=== PATIENT | male | born 1950 | race Caucasian/White ===

== ENCOUNTER → 2018-11-12 | Outpatient (CLI) | payer MEDICARE, OTHER ==
[~2018-11-12] MED LIST: ATORVASTATIN CA40 M1 PO; BASAG SOL SC; BICALUTAMIDE50 MG PO; CHLORTHALIDONE25 MG PO; GLIPIZIDE XL2.5 M1 PO; GLUCOPHAGE1000 MG PO; LISINOPRIL40 MG PO; MIRAPEX0.5 MG PO; NORVASC5 MG PO; SINEMET 25-1001 EACH PO; ZOFRAN4 MG PO
== END | disposition home or self-care (01) ==
LOC: CT 11-05 10:00
DX: M48.062 Spinal stenosis, lumbar region with neurogenic claudication (principal); G62.9 Polyneuropathy, unspecified; R53.1 Weakness; M47.816 Spondylosis without myelopathy or radiculopathy, lumbar region

== ENCOUNTER 2019-01-12 11:15 | Inpatient (IN) | payer MEDICARE, OTHER ==
[~2019-01-12] VITALS: Ht 170.1 cm; Wt 96.2 kg
[2019-01-12] VITALS (7 sets, daily range): BP systolic 126–162; BP diastolic 47–68
[2019-01-12 11:38] LABS: BASO # 0.1 10*3/uL (0.0-0.1); BASO % 0.4 % (0.0-1.0); EOS % 0.3 % (1.0-4.0); HEMATOCRIT 33.8 % (42.0-52.0); HEMOGLOBIN 11.3 g/dl (14.0-18.0); LYMPH # 1.1 10*3/uL (1.3-4.4); LYMPH % 7.9 % (27.0-41.0); MEAN CELL VOLUME 87.1 fl (80.0-94.0); MEAN CORPUSCULAR HGB 29.1 pg (27.0-31.0); MEAN CORPUSCULAR HGB CONC 33.4 g/dl (33.0-37.0); MEAN PLATELET VOLUME 9.2 fl (9.6-12.3); MONO # 0.8 10*3/uL (0.1-1.0); MONO % 5.5 % (3.0-9.0); NEUT # 11.9 10*3/uL (2.3-7.9); NEUT % 85.7 % (47.0-73.0); PLATELET COUNT AUTOMATED 278 10*3/uL (130-400); RED BLOOD COUNT 3.88 10*6/uL (4.50-5.90); WHITE BLOOD COUNT 13.9 10*3/uL (4.8-10.8)
[2019-01-12 11:49] LABS: ACT PARTIAL THROMBO TIME 22.2 SECONDS (20.0-32.1); INTERNATIONAL NORM RATIO 0.9 (2.0-3.5)
[2019-01-12 11:55] LABS: BUN 31 mg/dl (7-24); CHLORIDE 101 mmol/L (98-107); POTASSIUM 4.7 mmol/L (3.5-5.1); SGOT/AST 14 IU/L (3-35); SGPT/ALT 25 U/L (12-78); SODIUM 133 mmol/L (136-145); TOTAL PROTEIN 7.9 gm/dL (6.4-8.2)
[2019-01-12 11:56] LABS: ALKALINE PHOSPHATASE 86 U/L (45-117)
[2019-01-12 12:00] LABS: TROPONIN I < 0.015 ng/ml (<0.045)
--- NOTE | 2019-01-12 14:40 | NUR ---
A 68, admitted to , under the services of JAMIE Amador DO with a diagnosis of NEAR SYNCOPE, UNABLE TO AMBULATE. Chief complaint is SYNCOPE, WEAKNESS,NAUSEA,VOMITING. Patient arrived via bed from ER. Monitor applied. Initial assessment completed. Vital signs taken and recorded. JAMIE AMADOR DO notified of admission to the unit. Orders received. See assessment for past medical history, medications and allergies. Patient and/or family oriented to unit. [facility] visitation policy reviewed. Clothing/patient valuable form completed. VEGA CISSE
[2019-01-12] MEDS ORDERED: BASAG SOL SC (15:48)
[2019-01-12] MEDS ORDERED: LISINOPRIL40 MG PO (15:50)
[2019-01-12] MEDS ORDERED: CHLORTHALIDONE25 MG PO (15:51)
[2019-01-12] MEDS ORDERED: GLUCOPHAGE1000 MG PO (15:51)
[2019-01-12] MEDS ORDERED: ATORVASTATIN CA40 M1 PO (15:51)
[2019-01-12] MEDS ORDERED: GLIPIZIDE XL2.5 M1 PO (15:52)
[2019-01-12] MEDS ORDERED: NORVASC5 MG PO (15:53)
[2019-01-12] MEDS ORDERED: BICALUTAMIDE50 MG PO (15:54)
[2019-01-12] MEDS ORDERED: SINEMET 25-1001 EACH PO (15:54)
[2019-01-12] MEDS ORDERED: MIRAPEX0.5 MG PO (15:56)
--- NOTE | 2019-01-12 16:00 | NUR ---
MED REC UPDATED PER PAPERS PROVIDED BY PATIENT.
--- NOTE | 2019-01-12 20:01 | NUR ---
24 HR chart check completed.
[2019-01-13] VITALS: BP 114/67
[2019-01-13 05:28] LABS: BASO # 0.1 10*3/uL (0.0-0.1); BASO % 0.5 % (0.0-1.0); EOS # 0.3 10*3/uL (0.0-0.4); EOS % 2.6 % (1.0-4.0); HEMATOCRIT 31.2 % (42.0-52.0); HEMOGLOBIN 10.5 g/dl (14.0-18.0); LYMPH # 1.5 10*3/uL (1.3-4.4); LYMPH % 12.9 % (27.0-41.0); MEAN CELL VOLUME 87.9 fl (80.0-94.0); MEAN CORPUSCULAR HGB 29.6 pg (27.0-31.0); MEAN CORPUSCULAR HGB CONC 33.7 g/dl (33.0-37.0); MONO # 1.1 10*3/uL (0.1-1.0); MONO % 9.4 % (3.0-9.0); NEUT # 8.7 10*3/uL (2.3-7.9); NEUT % 74.3 % (47.0-73.0); PLATELET COUNT AUTOMATED 235 10*3/uL (130-400); RED BLOOD COUNT 3.55 10*6/uL (4.50-5.90); WHITE BLOOD COUNT 11.7 10*3/uL (4.8-10.8)
[2019-01-13 05:44] LABS: ALBUMIN 3.6 gm/dl (3.1-4.5); ALKALINE PHOSPHATASE 79 U/L (45-117); BUN 27 mg/dl (7-24); CHLORIDE 102 mmol/L (98-107); CHOLESTEROL 143 mg/dL (<200); CREATININE 1.18 mg/dL (0.70-1.30); FREE T4 0.95 ng/dl (0.76-1.46); HDL CHOLESTEROL 44 mg/dl (40-60); LDL CHOLESTEROL 68 mg/dL (9-159); PHOSPHOROUS 3.4 mg/dL (2.5-4.9); POTASSIUM 4.3 mmol/L (3.5-5.1); SGOT/AST 13 IU/L (3-35); SGPT/ALT 10 U/L (12-78); SODIUM 135 mmol/L (136-145); TOTAL PROTEIN 7.2 gm/dL (6.4-8.2); TRIGLYCERIDES 157 mg/dl (<150); VLDL CHOLESTEROL 31 mg/dL (6-40)
[2019-01-13 05:51] LABS: THYROID STIM HORMONE (HS) 0.545 uIU/ml (0.358-4.75)
[2019-01-13 05:56] LABS: ACT PARTIAL THROMBO TIME 23.2 SECONDS (20.0-32.1)
[2019-01-13 08:00] VITALS: BP 120/72
[2019-01-13 08:02] LABS: VITAMIN D, 25-HYDROXY 21.8 ng/mL (30-100)
[2019-01-13 12:00] VITALS: BP 140/50
--- NOTE | 2019-01-13 14:29 | NUR ---
PT TRANSFERRED TO THE 5TH FLOOR AT THIS TIME. REPORT GIVEN TO ALCIRA SWIFT RN.
[2019-01-13 16:00] VITALS: BP 127/61
--- NOTE | 2019-01-13 16:06 | NUR ---
ADMINISTERED TUMS 1000MG X 1 ORDERED FOR C/O INDIGESTION, ALSO MILK OF MAGNESIA FOR CONSTIPATION.
--- NOTE | 2019-01-13 17:18 | NUR ---
TUMS WAS VERY MINIMALLY EFFECTIVE, PER PATIENT. HE IS REQUESTING ADDITIONAL MEDICATION FOR INDIGESTION.
[2019-01-13 20:00] VITALS: BP 115/62
[2019-01-14] VITALS: BP 148/70
--- NOTE | 2019-01-14 02:58 | NUR ---
PATIENT RESTING IN BED WITH EYES CLOSED. AWAKENS TO VERBAL STIMULI. DENIES COMPLAINTS OF PAIN OR DISCOMFORT. WILL CONTINUE TO MONITOR. CALL LIGHT IN REACH.
[2019-01-14 08:00] VITALS: BP 149/71
--- NOTE | 2019-01-14 08:08 | NUR ---
ASSESSMENT COMPLETE ON PT AT THIS TIME. PT RESTING IN BED, EASILY AROUSED. NO S/S OF DISTRESS NOTED. NO COMPLAINTS ARE VOICED. PT PLEASANT AND COOPERATIVE WITH CARE. ALL NEEDS ARE MET AT THIS TIME. SAFETY MEASURES IN PLACE. CALL LIGHT IN REACH.
[2019-01-14] MEDS ORDERED: ZOFRAN4 MG PO (10:51)
--- NOTE | 2019-01-14 11:45 | NUR ---
Yardage Estimator in to talk to patient. Patient states lives at HOME with ALONE. There are BASEMENT steps in the home. Physician: [facility] Pharmacy: [facility] [place] [facility] services: NONE Patient's level of ADLs: INDEPENDENT Patient has working utilities: YES DME: NONE Follow-up physician's appointment after d/c: WILL BE MADE BY HOSPITALIST NURSE DIRECTOR ON DISCHARGE Does patient want to access PORTAL?: NO Discharge plan PT LIVES AT HOME ALONE AND IS INDEPENDENT IN HIS CARE. DENIES NEEDS ON DISCHARGE. STATES HE WILL RETURN HOME WHEN MEDICALLY STABLE. WILL CONTINUE TO FOLLOW. WILL HAVE A RIDE HOME PER PT.. GRABIEL HALL
[2019-01-14 12:00] VITALS: BP 126/72
--- NOTE | 2019-01-14 12:30 | NUR ---
Discharge instructions reviewed with patient/family. Patient receptive and verbalizes understanding. Follow-up care arranged. Written instructions given to patient/family. VEGA CISSE
== END 2019-01-14 12:30 | disposition home or self-care (01) | DRG 640 ==
LOC: ED 11:15 → EDHOLD 13:30 → 4E 13:52 → 5E 01-13 14:39
PROVIDERS: Emergency Medicine; Hospitalist; ADMIT Family Medicine
DX: E87.1 Hypo-osmolality and hyponatremia (principal); G93.41 Metabolic encephalopathy; R55 Syncope and collapse; R11.2 Nausea with vomiting, unspecified; R26.2 Difficulty in walking, not elsewhere classified; D64.9 Anemia, unspecified; D72.829 Elevated white blood cell count, unspecified; E11.42 Type 2 diabetes mellitus with diabetic polyneuropathy; I10 Essential (primary) hypertension; E11.65 Type 2 diabetes mellitus with hyperglycemia; Z79.4 Long term (current) use of insulin; Z82.49 Family history of ischemic heart disease and other diseases of the circulatory system; Z88.6 Allergy status to analgesic agent; Z88.5 Allergy status to narcotic agent; Z85.46 Personal history of malignant neoplasm of prostate; Z82.0 Family history of epilepsy and other diseases of the nervous system; Z79.899 Other long term (current) drug therapy

== ENCOUNTER 2020-12-11 12:27 | Emergency (ER) | payer MEDICARE, OTHER | END 2020-12-11 12:53 | LOC: ED 12:27 | DX: R50.9 Fever, unspecified (principal); R51.9 Headache, unspecified; Z53.21 Procedure and treatment not carried out due to patient leaving prior to being seen by health care provider ==

== ENCOUNTER → 2021-09-22 | Outpatient (CLI) | payer MEDICARE, OTHER | END | disposition home or self-care (01) | LOC: RAD 10:26 | PROVIDERS: ATTEND Chiropractor | DX: M47.812 Spondylosis without myelopathy or radiculopathy, cervical region (principal); M43.8X2 Other specified deforming dorsopathies, cervical region; M25.78 Osteophyte, vertebrae; M25.512 Pain in left shoulder ==

== ENCOUNTER → 2022-05-12 | Outpatient (CLI) | payer MEDICARE, OTHER ==
[~2022-05-12] MED LIST changes: +LANTUS SOL100 UNIT/1 SC; +LASIX40 MG PO; +VITAMIN D350 MC2 PO
== END | disposition home or self-care (01) ==
LOC: WOUNDCARE 00:38
PROVIDERS: ATTEND Nurse Practitioner Family
DX: E11.621 Type 2 diabetes mellitus with foot ulcer (principal); L97.511 Non-pressure chronic ulcer of other part of right foot limited to breakdown of skin; L84 Corns and callosities; E11.40 Type 2 diabetes mellitus with diabetic neuropathy, unspecified; E78.5 Hyperlipidemia, unspecified; I11.0 Hypertensive heart disease with heart failure; I50.9 Heart failure, unspecified; Z79.84 Long term (current) use of oral hypoglycemic drugs

== ENCOUNTER → 2022-05-19 | Outpatient (CLI) | payer MEDICARE, OTHER | END | disposition home or self-care (01) | LOC: WOUNDCARE 01:55 | PROVIDERS: ATTEND Nurse Practitioner Family | DX: E11.621 Type 2 diabetes mellitus with foot ulcer (principal); L97.511 Non-pressure chronic ulcer of other part of right foot limited to breakdown of skin; S91.105A Unspecified open wound of left lesser toe(s) without damage to nail, initial encounter; S91.104A Unspecified open wound of right lesser toe(s) without damage to nail, initial encounter; E11.40 Type 2 diabetes mellitus with diabetic neuropathy, unspecified; E78.5 Hyperlipidemia, unspecified; I10 Essential (primary) hypertension; X58.XXXA Exposure to other specified factors, initial encounter; Y93.89 Activity, other specified; Y92.89 Other specified places as the place of occurrence of the external cause; Y99.8 Other external cause status ==

== ENCOUNTER → 2022-05-31 | Outpatient (CLI) | payer MEDICARE, OTHER | END | disposition home or self-care (01) | LOC: WOUNDCARE 05-24 01:42 | PROVIDERS: ATTEND Nurse Practitioner Family | DX: E11.621 Type 2 diabetes mellitus with foot ulcer (principal); L97.511 Non-pressure chronic ulcer of other part of right foot limited to breakdown of skin; L84 Corns and callosities; S91.105D Unspecified open wound of left lesser toe(s) without damage to nail, subsequent encounter; S91.104D Unspecified open wound of right lesser toe(s) without damage to nail, subsequent encounter; S91.102D Unspecified open wound of left great toe without damage to nail, subsequent encounter; S91.101D Unspecified open wound of right great toe without damage to nail, subsequent encounter; E11.40 Type 2 diabetes mellitus with diabetic neuropathy, unspecified; E78.5 Hyperlipidemia, unspecified; I10 Essential (primary) hypertension; X58.XXXD Exposure to other specified factors, subsequent encounter ==

== ENCOUNTER → 2022-06-07 | Outpatient (CLI) | payer MEDICARE, OTHER ==
[~2022-06-07] MED LIST changes: +ALDACTONE25 MG PO; +ASPIRIN ADULT L81 M2 PO; +CLONIDINE HCL0.2 MG PO; +METOPROLOL SUCC25 M2 PO
== END ==
LOC: WOUNDCARE
PROVIDERS: ATTEND Nurse Practitioner Family
DX: Z53.21 Procedure and treatment not carried out due to patient leaving prior to being seen by health care provider (principal)

== ENCOUNTER → 2022-06-21 | Outpatient (CLI) | payer MEDICARE, OTHER | END | disposition home or self-care (01) | LOC: WOUNDCARE 00:48 | PROVIDERS: ATTEND Nurse Practitioner Family | DX: E11.621 Type 2 diabetes mellitus with foot ulcer (principal); L97.511 Non-pressure chronic ulcer of other part of right foot limited to breakdown of skin; S91.104D Unspecified open wound of right lesser toe(s) without damage to nail, subsequent encounter; S91.105D Unspecified open wound of left lesser toe(s) without damage to nail, subsequent encounter; E78.5 Hyperlipidemia, unspecified; E11.40 Type 2 diabetes mellitus with diabetic neuropathy, unspecified; I10 Essential (primary) hypertension; L84 Corns and callosities; X58.XXXD Exposure to other specified factors, subsequent encounter ==

== ENCOUNTER → 2022-08-30 | Outpatient (CLI) | payer MEDICARE, OTHER | END | disposition home or self-care (01) | LOC: RESCLI 00:41 | PROVIDERS: ATTEND Student in an Organized Health Care Education/Training Program | DX: I11.0 Hypertensive heart disease with heart failure (principal); I50.30 Unspecified diastolic (congestive) heart failure; E11.621 Type 2 diabetes mellitus with foot ulcer; E78.5 Hyperlipidemia, unspecified; Q25.3 Supravalvular aortic stenosis; E56.9 Vitamin deficiency, unspecified; G25.81 Restless legs syndrome; C61 Malignant neoplasm of prostate; Z98.890 Other specified postprocedural states; Z79.899 Other long term (current) drug therapy ==

== ENCOUNTER 2023-02-06 03:25 | Emergency (ER) | payer MEDICARE, OTHER ==
[~2023-02-06] VITALS: Ht 182.8 cm; Wt 89.8 kg
[~2023-02-06 03:25] MED LIST changes: +AUGMENTIN 500500 M1 PO; +GLIMEPIRIDE2 MG PO; +HUMALOG100 UNIT/1 SC; +JARDIANCE10 MG PO; +JARDIANCE25 MG PO; +LEVOFLOXACIN750 M2 PO; +LIPITOR80 MG PO; +ZESTRIL10 MG PO
[2023-02-06 04:04] LABS: BASO % 0.3 % (0.0-1.0); HEMATOCRIT 31.9 % (42.0-52.0); LYMPH # 0.5 10*3/uL (1.3-4.4); LYMPH % 5.2 % (27.0-41.0); MEAN CORPUSCULAR HGB 25.9 pg (27.0-31.0); MEAN CORPUSCULAR HGB CONC 30.1 g/dl (33.0-37.0); MEAN PLATELET VOLUME 8.7 fl (9.6-12.3); MONO # 1.2 10*3/uL (0.1-1.0); MONO % 12.6 % (3.0-9.0); NEUT # 7.9 10*3/uL (2.3-7.9); NEUT % 81.5 % (47.0-73.0); PLATELET COUNT AUTOMATED 283 10*3/uL (130-400); RED BLOOD COUNT 3.71 10*6/uL (4.50-5.90); RED CELL DISTRI WIDTH 14.7 % (0-14.5); WHITE BLOOD COUNT 9.7 10*3/uL (4.8-10.8)
[2023-02-06 04:14] LABS: ACT PARTIAL THROMBO TIME 33.6 SECONDS (20.0-32.1)
[2023-02-06 04:27] LABS: BILIRUBIN Negative (Negative); BLOOD Negative (Negative); CLARITY Clear (Clear); COLOR Yellow (Yellow); GLUCOSE 2+ (Negative); KETONE Negative (Negative); LEUKO ESTERASE Negative (Negative); NITRITE Negative (Negative); UROBILINOGEN 0.2 E.U./dl (0.0-1.0)
[2023-02-06 04:32] LABS: ALKALINE PHOSPHATASE 136 U/L (46-116); BUN 35 mg/dl (9-23); CHLORIDE 101 mmol/L (98-107); LIPASE 23 U/L (12-53); POTASSIUM 4.1 mmol/L (3.4-5.1); SGPT/ALT 33 U/L (5-49); TOTAL PROTEIN 7.5 gm/dL (6.0-8.0)
[2023-02-06 04:43] LABS: BACTERIA 1+
== END 2023-02-06 07:55 ==
LOC: ED 03:25
PROVIDERS: Internal Medicine
DX: I46.9 Cardiac arrest, cause unspecified (principal); I49.9 Cardiac arrhythmia, unspecified; I10 Essential (primary) hypertension; E11.9 Type 2 diabetes mellitus without complications